=== PATIENT | female | born 1955 | race Caucasian/White ===

== ENCOUNTER → 2016-08-19 | Outpatient (CLI) | payer OTHER ==
[~2016-08-19] MED LIST: ATEN-158 GT; SIMV20TA3 PO
--- NOTE | 2016-08-20 16:24 | Diagnostic Imaging Report ---
EXAMINATION: Bilateral screening mammogram with a Computer Aided Detection (CAD) system. INDICATION: Screening. PERSONAL HISTORY: No current complaints stated on the questionnaire. COMPARISON: 08/14/2015. FINDINGS: The breasts are composed of heterogeneously dense parenchyma which may decrease mammographic sensitivity. There are scattered benign-appearing calcifications. Allowing for technique and positional differences, no suspicious change is seen. IMPRESSION: No significant change. ACR BI-RADS Category 2: Benign findings. Result letter will be mailed to the patient. Note: At least 10% of breast cancer is not imaged by mammography. Dictated on workstation # [id number]
== END ==
LOC: RAD 12:47
PROVIDERS: ATTEND Obstetrics & Gynecology
DX: Z12.31 Encounter for screening mammogram for malignant neoplasm of breast (principal)
CPT/HCPCS: 77067

== ENCOUNTER → 2017-10-26 | Outpatient (CLI) | payer OTHER ==
--- NOTE | 2017-10-26 08:39 | Diagnostic Imaging Report ---
INDICATION: Routine screening. COMPARISON: 08/19/2016 and 08/14/2015. TECHNIQUE: 2D and 3D bilateral screening mammography was performed with CAD. FINDINGS: Both breasts are heterogeneously dense, limiting the sensitivity of mammography. The parenchymal pattern appears stable. No mass or malignant-appearing microcalcifications are seen. There are benign calcifications bilaterally. The axillae are unremarkable. IMPRESSION: No mammographic features suspicious for malignancy are identified. ACR BI-RADS Category 2: Benign findings. Result letter will be mailed to the patient. Note: At least 10% of breast cancer is not imaged by mammography. Dictated by: Dictated on workstation # [id number]
== END ==
LOC: RAD 07:51
PROVIDERS: ATTEND Obstetrics & Gynecology
DX: Z12.31 Encounter for screening mammogram for malignant neoplasm of breast (principal)
CPT/HCPCS: 77067

== ENCOUNTER → 2018-11-10 | Outpatient (CLI) | payer MEDICARE, OTHER ==
--- NOTE | 2018-11-10 18:56 | Diagnostic Imaging Report ---
INDICATION: Routine screening. COMPARISON: Comparison is made with prior mammograms from 10/26/2017 and 08/19/2016. 2-D and 3-D bilateral screening mammography was performed. The current study was also evaluated with a Computer Aided Detection (CAD) system. 3-D tomosynthesis was also performed and reviewed. FINDINGS: Both breasts are heterogeneously dense, limiting the sensitivity of mammography. Benign calcifications are noted. No mass or malignant-appearing microcalcifications are seen. The axillae are unremarkable. IMPRESSION: No mammographic features suspicious for malignancy are identified. ACR BI-RADS Category 2: Benign findings. Result letter will be mailed to the patient. Note: At least 10% of breast cancer is not imaged by mammography. Dictated by: Dictated on workstation # [id number]
== END ==
LOC: RAD 08:39
PROVIDERS: ATTEND Internal Medicine
DX: Z12.31 Encounter for screening mammogram for malignant neoplasm of breast (principal)
CPT/HCPCS: 77067

== ENCOUNTER → 2019-05-13 | Outpatient (CLI) | payer MEDICARE, OTHER ==
--- NOTE | 2019-05-13 13:00 | Diagnostic Imaging Report ---
INDICATION: Right hip and groin pain. FINDINGS: Morphology of the femoral head appears normal without evidence of subchondral collapse. There is mild joint space narrowing compatible with osteoporosis. There are no findings of an acute proximal femoral fracture. The visualized portions of the pelvic ring appears intact. IMPRESSION: 1. Minimal arthritic changes of the right hip. No fracture or suspicious bony lesion evident. Dictated by: Dictated on workstation # [id number]
== END ==
LOC: RAD 11:46
PROVIDERS: ATTEND Physician Assistant
DX: M25.551 Pain in right hip (principal)
CPT/HCPCS: 73502

== ENCOUNTER → 2019-11-12 | Outpatient (CLI) | payer MEDICARE, OTHER ==
--- NOTE | 2019-11-12 14:35 | Diagnostic Imaging Report ---
INDICATION: Routine screening. COMPARISON: 11/10/2018 and 10/26/2017. TECHNIQUE: 2D and 3D bilateral screening mammography was performed with CAD. FINDINGS: Both breasts are heterogeneously dense, limiting the sensitivity of mammography. Benign calcifications are noted bilaterally. The parenchymal pattern is stable. No mass or malignant appearing microcalcifications are seen. The axillae are unremarkable. IMPRESSION: No mammographic features suspicious for malignancy are identified. ACR BI-RADS Category 2: Benign findings. Result letter will be mailed to the patient. Note: At least 10% of breast cancer is not imaged by mammography. Dictated by: Dictated on workstation # [id number]
== END ==
LOC: RAD 08:25
PROVIDERS: ATTEND Internal Medicine
DX: Z12.31 Encounter for screening mammogram for malignant neoplasm of breast (principal)
CPT/HCPCS: 77063; 77067

== ENCOUNTER 2019-12-07 05:50 | Outpatient (CLI) | payer MEDICARE, OTHER ==
[~2019-12-07] VITALS: Ht 154 cm; Wt 53.1 kg
[2019-12-07] MEDS ORDERED: SIMV20TA26 PO (11:22)
[2019-12-07] MEDS ORDERED: ATEN50TA PO (11:22)
== END 2019-12-07 11:25 | disposition home or self-care (01) ==
LOC: PREOP 05:50
PROVIDERS: ATTEND Internal Medicine
DX: Z01.818 Encounter for other preprocedural examination (principal)

== ENCOUNTER 2019-12-14 07:30 | Day surgery (SDC) | payer MEDICARE, OTHER ==
--- NOTE | 2019-12-07 10:56 | HISTORY AND PHYSICAL ---
DATE OF SERVICE: COLONOSCOPY HISTORY AND PHYSICAL HISTORY: The patient is a 64-year-old white female referred for screening colonoscopy. She is deemed to be of higher than average risk as her father was diagnosed with colon cancer in his mid-70s. She is not aware of any other family history for colon cancer or polyps. She believes she has had some polyps in the past, although not on her last colonoscopy, which was 6 years ago. I did confirm this reviewing her electronic medical record. She had some small internal hemorrhoids and one stage I external hemorrhoid, but no evidence for neoplasia. She denies bright red blood per rectum, melena, bowel habit change or abdominal pain. PAST MEDICAL HISTORY: Significant for hyperlipidemia, osteoporosis. She is on atenolol for palpitations with no known history for heart disease. She does report some right hip arthritis and improved with steroid injection. MEDICATIONS: Include atenolol 50 mg daily, simvastatin 20 mg daily, alendronate 70 mg weekly. She takes some vitamins, probiotic and Ocuvite. ALLERGIES: She reports no known drug allergies. FAMILY HISTORY: Pertinent for father who was diagnosed with colon cancer at the age of 75. PAST SURGICAL HISTORY: She has had some left wrist surgery, cataract extraction and sinus surgery in the past. She denies any joint replacement surgeries. 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 REVIEW OF SYSTEMS: CONSTITUTIONAL: She denies night sweats, chills, fever or change in weights. CARDIOVASCULAR: On atenolol. She has had no palpitations. Denies chest discomfort, orthopnea, PND, pedal edema, syncope or presyncope. PULMONARY: She denies cough, wheezing, shortness of breath or dyspnea on exertion. GASTROINTESTINAL: As noted in the HPI. PHYSICAL EXAMINATION: GENERAL: Reveals a pleasant, well-appearing white female in no acute distress. VITAL SIGNS: Blood pressure 138/90, weight 117.8 pounds. CHEST: Clear to auscultation. CARDIOVASCULAR: Reveals a regular rate and rhythm without murmur, S3 or S4. ABDOMEN: Soft, supple without mass, organomegaly or tenderness. No bruits are noted. EXTREMITIES: Reveal no cyanosis, clubbing or edema. ASSESSMENT: The patient was set up for screening colonoscopy, deemed to be of higher than average risk due to father was diagnosed with colon cancer at the age of 75. Prep instructions with Suprep kit were given and questions were answered. I thank you for the referral of this pleasant lady. Job ID: [id number] DocumentID: [id number] Dictated Date: 12/05/2019 11:59:43 Box Annealer Date: 12/05/2019 12:15:27 Dictated By: HELEN FRIEDMAN MD MTDD
[~2019-12-14] VITALS: Ht 154 cm; Wt 53.1 kg
[~2019-12-14 07:30] MED LIST changes: +ATEN50TA PO; +SIMV20TA26 PO
[2019-12-14] MEDS ORDERED: LACTATED RINGERS 1,000 ML IV STA (07:36)
[2019-12-14] MEDS ORDERED: LACTATED RINGERS 1,000 ML IV ONE (07:36)
[2019-12-14] MEDS ORDERED: LIDOCAINE JELLY 2% 6 ML SYRINGE MM PRN (07:45)
[2019-12-14 07:49] VITALS: BP 152/86
[2019-12-14] MEDS ORDERED: PROPOFOL INJECTION 50 ML IV ONE (08:23)
[2019-12-14] MEDS ORDERED: MIDAZOLAM 2 MG/2 ML (VERSED) VIAL ONE (08:23)
--- NOTE | 2019-12-14 08:37 | Pre-Op Note & Conscious Sedat ---
Pre-Operative Progress Note H&P Reviewed The H&P was reviewed, patient examined and no changes noted. Date H&P Reviewed: Dec 14, 2019 Time H&P Reviewed: 08:00 Conscious Sedation Pre-Proced ASA Score 2 For ASA 3 and 4: Consider anesthesia and medical clearance. Also, for patients with a history of failed moderate sedation consider anesthesia. Airway Lungs Heart ASA score ASA 1: a normal healthy patient ASA 2: a patient with a mild systemic disease (mid diabetes, controlled hypertension, obesity ASA 3: a patient with a severe systemic disease that limits activity (angina, COPD, prior Myocardial infarction) ASA 4: a patient with an incapacitating disease that is a constant threat to life (CHF, renal failure) ASA 5: a moribund patient not expected to survive 24 hrs. (ruptured aneurysm) ASA 6: a declared brain- patient whose organs are being harvested. For emergent operations, add the letter E after the classification Mallampati Classification Grade 2 Sedation Plan Analgesia, Amnesia, Plan communicated to team members, Discussed options with patient/fam, Discussed risks with patient/fam The patient is an appropriate candidate to undergo the planned procedure, sedation, and anesthesia. The patient immediately re-assessed prior to indication. HELEN FRIEDMAN MD Dec 14, 2019 08:37
[2019-12-14 09:05] VITALS: BP 108/51
[2019-12-14 09:10] VITALS: BP 109/58
--- NOTE | 2019-12-14 09:10 | Anesthesia-General Post-Op ---
MAC Patient Condition Mental Status/LOC: Same as Preop Cardiovascular: Satisfactory Nausea/Vomiting: Absent Respiratory: Satisfactory Pain: Controlled Complications: Absent Post Op Complications Complications None Follow Up Care/Instructions Patient Instructions None needed. Anesthesiology Discharge Order Discharge Order Patient is doing well, no complaints, stable vital signs, no apparent adverse anesthesia problems. No complications reported per nursing. FRANCISCO CHAVEZ CRNA Dec 14, 2019 09:10
[2019-12-14 09:15] VITALS: BP 98/55
[2019-12-14 09:35] VITALS: BP 110/57
[2019-12-14 10:00] VITALS: BP 110/57
--- NOTE | 2019-12-14 19:02 | OPERATIVE REPORT ---
DATE OF SERVICE: COLONOSCOPY SUMMARY DICTATION ENDS HERE. Job ID: [id number] DocumentID: [id number] Dictated Date: 12/14/2019 11:03:42 Automotive Porter Date: 12/14/2019 19:01:34 Dictated By: HELEN FRIEDMAN MD
--- NOTE | 2019-12-14 19:05 | OPERATIVE REPORT ---
DATE OF SERVICE: COLONOSCOPY SUMMARY INDICATION FOR THE PROCEDURE: Screening colonoscopy, family history of colon cancer. DESCRIPTION OF PROCEDURE: The patient was placed in the left lateral decubitus position. Prior to undergoing colonoscopy, digital rectal evaluation was performed. Anal sphincter tone was normal and the perianal reflexes intact. No abnormalities were noted on digital inspection of anal canal or distal rectal vault. The colonoscope was then inserted into the rectum and under direct visualization advanced to cecum. The cecum was identified by identification of the ileocecal valve and cecal strap. Photographic documentation was obtained. Quality of prep was good. FINDINGS: There was no evidence for internal or external hemorrhoids. The rectum was unremarkable. Present at the rectosigmoid junction was a diminutive hyperplastic-appearing polyp. It was biopsied and ablated with no subsequent blood loss. The sigmoid colon was unremarkable. No evidence for neoplasia or diverticular disease was noted. The descending colon, splenic flexure, transverse colon, hepatic flexure, ascending colon and cecum were unremarkable as well. ASSESSMENT: One diminutive hyperplastic appearing polyp was noted at the rectosigmoid junction and subsequently ablated. Considering family history, I would advocate repeat surveillance colonoscopy in 5 years. I thank you for the referral of this pleasant lady. Job ID: [id number] DocumentID: [id number] Dictated Date: 12/14/2019 11:08:30 Heavy Duty Press Operator Date: 12/14/2019 19:05:16 Dictated By: HELEN FRIEDMAN MD
== END 2019-12-14 10:00 | disposition home or self-care (01) ==
LOC: ENDO 07:30
PROVIDERS: ATTEND Internal Medicine
DX: Z12.11 Encounter for screening for malignant neoplasm of colon (principal); D12.7 Benign neoplasm of rectosigmoid junction; I10 Essential (primary) hypertension; M19.90 Unspecified osteoarthritis, unspecified site; E78.5 Hyperlipidemia, unspecified; M81.0 Age-related osteoporosis without current pathological fracture; Z79.899 Other long term (current) drug therapy; Z80.0 Family history of malignant neoplasm of digestive organs
CPT/HCPCS: 88305

== ENCOUNTER 2020-07-03 14:27 | Outpatient (RCR) | payer MEDICARE, OTHER | END 2020-08-12 09:56 | disposition home or self-care (01) | PROVIDERS: ATTEND Orthopaedic Surgery | DX: Z96.641 Presence of right artificial hip joint (principal) ==

== ENCOUNTER → 2020-11-12 | Outpatient (CLI) | payer MEDICARE, OTHER ==
--- NOTE | 2020-11-12 12:27 | Diagnostic Imaging Report ---
Indication: Routine screening. Comparison is made with prior mammogram from 11/12/2019 and 11/10/2018. 2-D and 3-D bilateral screening mammography was performed with CAD. Both breasts are heterogeneously dense, limiting the sensitivity of mammography. No mass or malignant-appearing microcalcifications are seen. There are benign calcifications noted. Axillae are unremarkable. IMPRESSION: BI-RADS Category 2 No mammographic features suspicious for malignancy are identified. ACR BI-RADS Category 2: Benign findings. Result letter will be mailed to the patient. Note: At least 10% of breast cancer is not imaged by mammography. Dictated by: Dictated on workstation # [id number]
== END ==
LOC: RAD 09:48
PROVIDERS: ATTEND Internal Medicine
DX: Z12.31 Encounter for screening mammogram for malignant neoplasm of breast (principal)
CPT/HCPCS: 77063; 77067

== ENCOUNTER → 2021-06-23 | Outpatient (CLI) | payer MEDICARE, OTHER | LOC: CARD 09:00 | PROVIDERS: ATTEND Physician Assistant | DX: I34.0 Nonrheumatic mitral (valve) insufficiency (principal); I10 Essential (primary) hypertension | CPT/HCPCS: 93306 ==

== ENCOUNTER → 2021-06-29 | Outpatient (CLI) | payer MEDICARE, OTHER ==
[~2021-06-29] VITALS: Ht 154 cm; Wt 55.0 kg
[~2021-06-29] MED LIST changes: +CATHETER FLUSH 10 ML SYR IVP PRN
[2021-06-29 09:02] VITALS: BP 165/84
--- NOTE | 2021-06-29 11:06 | Cardiology Stress Test Report ---
Stress Test Report Date of Procedure/Referring: Date of Procedure: Jun 29, 2021 Juliet Fitzgerald Admitting Physician Jose Valenzuela MD Indications: HTN Baseline Heart Rate: 65 Baseline Blood Pressure: Blood Pressure Systolic: 165 Blood Pressure Diastolic: 84 Vital Signs Date Time Temp Pulse Resp B/P (MAP) Pulse Ox O2 Delivery O2 Flow Rate FiO2 06/29/21 09:02 65 165/84 (111) 99 Baseline Vital Signs Vital Signs Date Time Temp Pulse Resp B/P (MAP) Pulse Ox O2 Delivery O2 Flow Rate FiO2 06/29/21 09:02 65 165/84 (111) 99 Baseline EKG: Baseline EKG: NSR Summary: After explaining the procedure and details to the patient, she signed the consent and was brought to the stress nuclear laboratory. Patient exercised on standard Reinier protocol, EKG, heart rate and blood pressure were monitored continuously, resting and stress doses of radio tracer were injected, imaging was acquired and reviewed in the short axis, horizontal long a xis and vertical long axis views Patient was able to exercise for a total of 8.30 minutes on Reinier protocol, METs 10.3 Maximum heart rate 134 Maximum blood pressure 201/97 Stress EKG, Minimal nondiagnostic changes Recovery EKG, Return to baseline TID: 1.15 SSS: 5 SDS: 3 EF: 73 Conclusion: 1. Good exercise tolerance for a total of 8 minutes and 30 seconds on standard Reinier protocol, 10.3 METS achieving 87% of maximal expected heart rate 2. Appropriate heart rate response to exercise with hypertensive response to exercise, peak blood pressure two 1/97 return to baseline during recovery 3. Nondiagnostic EKG changes with exercise return to baseline during recovery 4. Mild decrease uptake at the inferoapical segment with mild reversibility probably due to apical thinning, there is no significant ischemia or infarction on SPECT images 5. Normal left ventricular size, ejection fraction 73% JOSIE JOHNSON MD Jun 29, 2021 11:06
== END ==
LOC: CARD 07:30
PROVIDERS: ATTEND Physician Assistant
DX: I10 Essential (primary) hypertension (principal)
CPT/HCPCS: 78452; 93017; A9502

== ENCOUNTER → 2021-08-28 | Outpatient (CLI) | payer MEDICARE, OTHER ==
[~2021-08-28] MED LIST changes: -CATHETER FLUSH 10 ML SYR IVP PRN
--- NOTE | 2021-08-28 12:23 | Diagnostic Imaging Report ---
PROCEDURE: US Thyroid. TECHNIQUE: Multiple real-time grayscale images were obtained of the thyroid in various projections. INDICATION: Enlarged thyroid gland. COMPARISON: None available FINDINGS: The right lobe of thyroid gland measures 4.8 x 1.5 x 1.4 cm. Several small cystic nodules are present within the right thyroid lobe, measuring up to 0.4 cm. Left lobe of thyroid gland measures 3.4 x 0.9 x 1.4 cm. It maintains a homogeneous echotexture without discrete nodule. Isthmus is unremarkable. IMPRESSION: Benign subcentimeter right thyroid cystic nodules. The thyroid gland is within normal limits in size. Dictated by: Dictated on workstation # [id number]
== END ==
LOC: RAD 11:00
PROVIDERS: ATTEND Internal Medicine
DX: E04.2 Nontoxic multinodular goiter (principal)
CPT/HCPCS: 76536

== ENCOUNTER → 2021-09-08 | Outpatient (CLI) | payer MEDICARE ==
--- NOTE | 2021-09-08 11:50 | Diagnostic Imaging Report ---
INDICATION: Postmenopausal state COMPARISON: 12/04/2015 FINDINGS: AP Spine L1-L4: [BMD (g/cm2): 0.819] [T-Score: -3.2] [Z-Score: -1.2] [BMD Previous: 0.759] [BMD % Change: 7.9] LT Hip Neck: [BMD (g/cm2): 0.654] [T-Score: -2.8] [Z-Score: -0.9] LT Hip Total: [BMD (g/cm2):0.791] [T-Score:-1.7] [Z-Score: -0.1] [BMD Previous: 0.762] [BMD % Change: 3.8] RT Hip Neck: [BMD (g/cm2):na] [T-Score:na] [Z-Score:na] RT Hip Total: [BMD (g/cm2):na] [T-score:na] [Z-Score:na] [BMD Previous:nan] [BMD % Change:na] *Indicates significant change from prior examination based on 95% confidence level. World Health Organization criteria for BMD interpretation classify patients as Normal (T-score at or above -1.0), Osteopenic (T-score between -1.0 and -2.5) or Osteoporotic (T-score at or below -2.5). LIMITATIONS AND MODIFICATION: The right hip was not evaluated secondary to postsurgical changes. FRACTURE RISK (FRAX SCORE): The ten year probability of (%): Major Osteoporotic Fracture: [15.2] Hip Fracture: [4.3] IMPRESSION: 1. Osteoporosis. 2. No significant change in bone mineral density since prior examination. 3. See below National Osteoporosis Foundation guidelines on when to potentially initiate pharmacologic therapy. Based on the National Osteoporosis Foundation Guidelines, pharmacologic treatment should be initiated in any of the following, unless clinical conditions suggest otherwise: * Any patient with prior fragility fracture of the hip or vertebrae. A spine fracture indicates 5X risk for subsequent spine fracture and 2X risk for subsequent hip fracture. * Osteoporosis (T-score <-2.5). * Postmenopausal women and men age 50 and older with low bone mass/osteopenia (T-score between -1.0 and -2.5) by DXA and 10-year major osteoporotic fracture greater than 20% or a 10-year probability of hip fracture greater than 3%. These fracture risks are supplied above in the FRAX score, if applicable. * Clinician judgement and/or patient preferences may indicate treatment for people with 10-year fracture probabilities above or below these levels. Dictated by: Dictated on workstation # [id number]
== END ==
LOC: RAD 09:30
PROVIDERS: ATTEND Nurse Practitioner Family
DX: M81.0 Age-related osteoporosis without current pathological fracture (principal); Z78.0 Asymptomatic menopausal state
CPT/HCPCS: 77080

== ENCOUNTER → 2021-12-17 | Outpatient (CLI) | payer MEDICARE ==
--- NOTE | 2021-12-17 16:46 | Diagnostic Imaging Report ---
INDICATION: Routine screening Comparison is made with prior mammogram 11/12/2020 and 11/12/2019. 2-D and 3-D bilateral screening mammography was performed with CAD. Both breasts are heterogeneously dense, limiting the sensitivity of mammography. The parenchymal pattern is stable. No mass or malignant-appearing microcalcifications are seen. There are benign calcifications present. Axillae are unremarkable. IMPRESSION: No mammographic features suspicious for malignancy are identified. ACR BI-RADS Category 2: Benign findings. Result letter will be mailed to the patient. Note: At least 10% of breast cancer is not imaged by mammography. BI-RADS Category 2 Dictated by: Dictated on workstation # [id number]
== END ==
LOC: RAD 14:55
PROVIDERS: ATTEND Internal Medicine
DX: Z12.31 Encounter for screening mammogram for malignant neoplasm of breast (principal)
CPT/HCPCS: 77063; 77067